=== PATIENT | female | born 1990 | race Caucasian/White ===

== ENCOUNTER → 2016-11-01 | Outpatient (CLI) | payer BC | END | disposition home or self-care (01) | LOC: C.PAPS 16:30 | PROVIDERS: ATTEND Obstetrics & Gynecology | DX: Z01.419 Encounter for gynecological examination (general) (routine) without abnormal findings (principal) ==

== ENCOUNTER → 2018-03-14 | Outpatient (CLI) | payer OTHER ==
--- NOTE | 2018-03-14 13:03 | DIAGNOSTIC IMAGING REPORT ---
PELVIC ULTRASOUND, TRANSABDOMINAL AND TRANSVAGINAL HISTORY: Pelvic pain. OVARIAN CYST COMPARISON: Pelvic MRI 10/20/2012. FINDINGS: Uterus: 8.4 x 4.4 x 3.3 cm. No uterine masses. Small complex nabothian cyst within the cervix, unchanged.. Endometrial stripe: 1 mm in thickness. There is an intrauterine device which is in good position. Right ovary: Normal in size and demonstrates normal color flow. There are few small follicles/cysts. Left ovary: Normal in size and demonstrates normal color flow. There are few small follicles/cysts. Miscellaneous:No pelvic free fluid. IMPRESSION: No significant abnormality identified within the pelvis. The intrauterine device is in good position. Electronically signed by: Gorge Watters M.D. 03/14/2018 1:02 PM Dictated Date/Time: 03/14/2018 12:58 PM
== END | disposition home or self-care (01) ==
LOC: C.ULTR 12:04
PROVIDERS: ATTEND Family Medicine
DX: N83.209 Unspecified ovarian cyst, unspecified side (principal); Z97.5 Presence of (intrauterine) contraceptive device

== ENCOUNTER 2020-05-18 21:33 | Inpatient (IN) ==
[2020-05-18] MEDS ORDERED: OXYTOCIN 30 UNITS/500 ML BAG IV PRN (22:52)
--- NOTE | 2020-05-18 22:59 | History & Physical Report ---
Date of Service May 18, 2020 Assessment & Plan (1) 38 weeks gestation of : (2) SROM (spontaneous rupture of membranes): admit iv labs. getting good labor pattern. expectant management. wants to consider epidural, ok to receive when desires. fhts categ 1. History of Present Illness Chief Complaint: srom clear fluid this pm Primary Care Provider: Wilfredo Brian 30yo at 38+wks ega presents to L&D with cc as noted. She called with leaking fluid about 9pm and was only having intermittent ctx. No vb. +FM. On arrival in L&D pt now noting more regular ctx increasing in pain. PNC c/b 1. known small vaginal septum, not thought to be issue for vaginal delivery 2. Panorama with low fraction, repeat panorama low risk, had mfm consult and they rec 28wks growth us, efw was 75% PNL rhpos, ri, gbs neg Allergies Allergy/AdvReac Type Severity Reaction Status Date / Time shellfish derived Allergy Mild Hives Verified 05/18/20 22:27 Sulfa (Sulfonamide Allergy Mild hives Verified 05/18/20 22:27 Antibiotics) soy AdvReac Unknown Gastrointestinal Verified 05/16/20 08:45 Upset Home Medications Home Medications Medication Instructions Recorded Confirmed Type prenat.vits,roseann,[id number] 1 tab PO DAILY 10/10/19 05/18/20 History fluoxetine 20 mg capsule 20 mg PO PM cap 12/31/19 05/16/20 History Patient History Medical History (Updated 05/18/20 @ 22:58 by Eloina Jaramillo MD, FACOG) Anxiety Encounter for anatomic survey Surgical History History of dental surgery tooth extracted > removed some infection in gum History of sinus surgery History of tooth extraction wisdom teeth Family History Father Allergic rhinitis Hearing loss Allergies Sinusitis Family/Other Breast cancer Mother Allergies Sinusitis Grandmother (Maternal) Asthma Heart disease Hypertension Grandfather (Maternal) Hypertension Stroke Cancer Kidney disease Grandmother (Paternal) Cancer Grandfather (Paternal) Diabetes Other No family history of adverse response to anesthesia No family history of bleeding disorder Social History Smoking Status: Never smoker Second Hand Exposure: No; Hx Alcohol Use: No Hx Substance Use: No Preferred Language: [place] Communication Ability: Effective Rn Labor And Delivery Required: No Beliefs That Will Affect Care: None marital status: marital status details: Isacc Middleton (33) [phone] Current Living Situation: Spouse Current Living Situation Comment: lives with spouse 2 dogs. 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 Other Information That Helps Us Care for You: No other: Doctorate Student Feels Safe at Home: Yes Safety Concerns: Feels Safe At This Time Childhood Exposure to Second-Hand Smoke: No Assistive Devices: Contacts and Glasses Review of Systems per hpi Physical Exam Constitutional: WD/WN, vitals as above Respiratory: normal respiratory effort, lungs clear to auscultation Cardiovascular: Rate/Rhythm: regular rate and regular rhythm Gastrointestinal (Abdomen): soft gravid nt Musculoskeletal: no edema nontender calves Neurologic: grossly normal Psychiatric: A+Ox3, euthymic affect Genitourinary: OB Exam Abdomen: + estimated weight (8#) Manual OB Exam: + cervical dilation 3 cm, + cervical effacement 100%, + station -1 and + amniotic fluid (gross srom) clear OB Exam Monitor Tracing: + external FHT monitor used (140 mod variability), + external uterine monitor used (q2), + category I and + normal FHT variability Results & Data ([place]) Vital Signs (Past 12 Hours) Vital Signs Temp Pulse Resp BP 05/18/20 22:38 99.0 F 18 05/18/20 21:53 18 05/18/20 21:51 85 143/65 H Coding Level of Care Code None Diagnoses 38 weeks gestation of Z3A.38 SROM (spontaneous rupture of membranes)
[2020-05-18] MEDS ORDERED: BUPIVACAINE 0.25% 30 ML VIAL ONE (23:12)
[2020-05-18] MEDS ORDERED: ePHEDrine sulfate 50 MG/ML AMP ONE (23:12)
[2020-05-18] MEDS ORDERED: fentaNYL citrate 100 MCG/2 ML VIAL ONE (23:12)
[2020-05-18] MEDS ORDERED: fentaNYL 2MCG/ML ROPIV 1.25MG/ML 100 ML BAG EPI ONE (23:13)
[2020-05-18] MEDS: LACTATED RINGER'S 1,000 ML IV PRN (23:16)
[2020-05-18 23:17] LABS: Hematocrit (blood only) 35.9 % (37-47); Mean Corpuscular Hemoglobin 28.3 pg (25-34); Mean Corpuscular Volume 84.7 fL (80-100); Mean Platelet Volume 9.8 fL (7.4-10.4); Platelet Count 283 K/uL (130-400); RDW Coefficient of Variation 14.5 % (11.5-14.5); RDW Standard Deviation 44.8 fL (36.4-46.3); Red Blood Count 4.24 M/uL (4.2-5.4); White Blood Count 15.82 K/uL (4.8-10.8)
[2020-05-18 23:23] LABS: Mean Corpuscular Hgb Conc 33.4 g/dL (32-36)
[2020-05-18 23:33] LABS: Albumin Level 2.5 gm/dl (3.4-5.0); BUN Creatinine Ratio 12.2 (10-20); Calcium 9.3 mg/dl (8.5-10.1); Est GFR (African American) 103.6; Est GFR (Non-African American) 89.4; Potassium 3.2 mmol/L (3.5-5.1)
[2020-05-18 23:36] LABS: Albumin Globulin Ratio 0.6 (0.9-2); Bilirubin,Total 0.4 mg/dl (0.2-1); Globulin 3.9 gm/dl (2.5-4.0); Total Protein 6.4 gm/dl (6.4-8.2)
--- NOTE | 2020-05-18 23:49 | Anesthesiology Consultation ---
Date of Service May 18, 2020 Assessment & Plan Chart Review Chart Review: Acceptable Risk for Labor Epidural Consults Requested none Proposed Anesthesia Risk / Benefits Reviewed With: PT / POA / Parent / Guardian, Accepts Plan and Informed Consent Obtained History Height/Weight Height: 5 ft 7 in Weight: 99.79 kg Allergies Allergy/AdvReac Type Severity Reaction Status Date / Time shellfish derived Allergy Mild Hives Verified 05/18/20 22:27 Sulfa (Sulfonamide Allergy Mild hives Verified 05/18/20 22:27 Antibiotics) soy AdvReac Unknown Gastrointestinal Verified 05/16/20 08:45 Upset Medications Home Medications Medication Instructions Recorded Confirmed Last Taken prenat.vits,roseann,uof-tdpu-zzatu 1 tab PO DAILY 10/10/19 05/18/20 05/18/20 09:00 fluoxetine 20 mg capsule 20 mg PO PM cap 12/31/19 05/16/20 05/17/20 21:00 Active Medications Generic Name Dose Route Start Last Admin Trade Name Freq PRN Reason Stop Dose Admin Lactated Ringer's 1,000 mls @ 125 mls/hr 05/18/20 22:52 05/18/20 23:16 Lr IV 05/20/20 22:51 125 mls/hr .Q8H PRN Administration L&D Protocol Protocol Past Medical History Medical History Anxiety Encounter for anatomic survey Past Family History Family History Father Allergic rhinitis Hearing loss Allergies Sinusitis Family/Other Breast cancer Mother Allergies Sinusitis Grandmother (Maternal) Asthma Heart disease Hypertension Grandfather (Maternal) Hypertension Stroke Cancer Kidney disease Grandmother (Paternal) Cancer Grandfather (Paternal) Diabetes Other No family history of adverse response to anesthesia No family history of bleeding disorder Past Surgical History Surgical History History of dental surgery tooth extracted > removed some infection in gum History of sinus surgery History of tooth extraction wisdom teeth Social History Smoking Status: Never smoker Hx Alcohol Use: No Alcohol type: beer and wine alcohol intake frequency: a few times a week Hx Substance Use: No substance use type: does not use Physical Exam Vital Signs Last Vital Signs Temp 37.2 C 05/18/20 22:38 Pulse 82 05/18/20 23:45 Resp 18 05/18/20 22:38 BP 133/64 05/18/20 23:45 Pulse Ox 95 05/18/20 23:45 Testing Laboratory Results 05/18/20 23:02 05/18/20 23:02
[2020-05-18] MEDS ORDERED: fentaNYL 2MCG/ML ROPIV 1.25MG/ML 100 ML BAG EPI PRN (23:51)
[2020-05-18] MEDS ORDERED: NALOXONE HCL 0.4 MG/1 ML VIAL/CARP IV PRN (23:51)
[2020-05-18] MEDS ORDERED: ONDANSETRON INJ 2 MG/ML 2 ML VIAL IV PRN (23:51)
[2020-05-18] MEDS ORDERED: ePHEDrine sulfate 50 MG/ML AMP IV PRN (23:51)
[2020-05-18] MEDS ORDERED: NALOXONE HCL 1 MG in SODIUM CHLORIDE 0.9% 1000ML 1,000 ML IV PRN (23:51)
[2020-05-18] MEDS ORDERED: DiphenhydrAMINE HCL 50 MG/ML VIAL IV PRN (23:51)
[2020-05-19] MEDS: LACTATED RINGER'S 1,000 ML IV PRN ×2 (02:20→07:17)
--- NOTE | 2020-05-19 07:16 | Labor Progress Brief Note ---
Date of Service May 19, 2020 Subjective Reason For Note: Routine Evaluation some urge to push Assessment & Plan (1) Longitudinal vaginal septum: (2) 38 weeks gestation of : (3) SROM (spontaneous rupture of membranes): ready for 2nd stage. feeling on and off urge to push. i did push with pt x 1 and septum can move toward pt left but unclear if would be best to transect. will wait to d/w oncoming md coldfusion. fhts categ 1. Admission and Anticipated Discharge Date Admission Date: May 18, 2020 Physical Exam Genitourinary: Manual OB Exam: + cervical dilation 10 cm, + cervical effacement 100% and + station + 2 OB Exam Monitor Tracing: + external FHT monitor used (150 mod variability), + external uterine monitor used (q2-4), + normal FHT variability and + variable decelerations Results & Data ([facility]) Vital Signs (Past 12 Hours) Vital Signs Temp Pulse Resp BP Pulse Ox 05/19/20 07:10 100 H 93 05/19/20 07:09 94 H 93 05/19/20 07:07 95 H 128/58 L 05/19/20 07:05 97 H 77 L 05/19/20 07:00 97 H 91 05/19/20 06:57 101 H 92 05/19/20 06:55 100 H 94 05/19/20 06:54 120 H 175/62 H 05/19/20 06:51 91 H 93 05/19/20 06:50 95 H 94 05/19/20 06:45 98 H 95 05/19/20 06:40 95 H 95 05/19/20 06:38 95 H 141/63 H 05/19/20 06:35 95 H 95 05/19/20 06:30 93 H 95 05/19/20 06:25 95 H 94 05/19/20 06:23 96 H 138/63 05/19/20 06:21 97 H 137/65 05/19/20 06:20 98 H 95 05/19/20 06:15 100 H 96 05/19/20 06:10 92 H 96 05/19/20 06:07 95 H 137/60 05/19/20 06:05 92 H 96 05/19/20 06:00 95 H 96 05/19/20 05:55 92 H 96 05/19/20 05:52 93 H 130/59 L 05/19/20 05:50 91 H 96 05/19/20 05:45 99.1 F 95 H 96 05/19/20 05:40 90 96 05/19/20 05:36 103 H 131/61 05/19/20 05:35 96 H 95 05/19/20 05:30 97 H 96 05/19/20 05:25 89 94 05/19/20 05:21 87 138/58 L 05/19/20 05:20 90 94 05/19/20 05:15 93 H 95 05/19/20 05:10 91 H 96 05/19/20 05:07 93 H 133/64 05/19/20 05:05 90 94 05/19/20 05:02 85 93 05/19/20 05:00 88 94 05/19/20 04:55 92 H 95 05/19/20 04:53 93 H 133/64 05/19/20 04:50 88 94 05/19/20 04:48 88 93 05/19/20 04:45 90 97 05/19/20 04:40 88 95 05/19/20 04:38 96 H 133/62 05/19/20 04:35 89 97 05/19/20 04:30 100 H 96 05/19/20 04:25 97 H 98 05/19/20 04:23 95 H 127/65 05/19/20 04:20 99 H 97 05/19/20 04:15 94 H 97 05/19/20 04:10 97 H 97 05/19/20 04:08 96 H 131/58 L 05/19/20 04:05 91 H 97 05/19/20 04:00 99.0 F 100 H 16 96 05/19/20 03:55 95 H 96 05/19/20 03:53 93 H 137/63 05/19/20 03:50 94 H 96 05/19/20 03:45 91 H 94 05/19/20 03:40 93 H 96 05/19/20 03:38 92 H 134/60 05/19/20 03:35 91 H 95 05/19/20 03:30 96 H 97 05/19/20 03:25 95 H 97 05/19/20 03:22 87 134/62 05/19/20 03:20 99 H 95 05/19/20 03:15 95 H 96 05/19/20 03:10 97 H 95 05/19/20 03:07 90 127/61 05/19/20 03:05 95 H 96 05/19/20 03:00 93 H 96 05/19/20 02:55 92 H 96 05/19/20 02:53 93 H 143/65 H 05/19/20 02:50 99 H 97 05/19/20 02:45 92 H 97 05/19/20 02:40 90 97 05/19/20 02:36 89 137/61 05/19/20 02:35 87 98 05/19/20 02:30 82 96 05/19/20 02:25 87 96 05/19/20 02:22 81 129/58 L 05/19/20 02:20 87 96 05/19/20 02:15 91 H 97 05/19/20 02:10 86 97 05/19/20 02:06 81 133/59 L 05/19/20 02:05 79 94 05/19/20 02:00 98.2 F 83 18 95 05/19/20 01:55 82 95 05/19/20 01:53 83 121/58 L 05/19/20 01:50 83 95 05/19/20 01:45 80 95 05/19/20 01:40 83 95 05/19/20 01:38 86 119/58 L 05/19/20 01:35 78 95 05/19/20 01:34 74 93 05/19/20 01:30 75 94 05/19/20 01:25 81 95 05/19/20 01:23 74 122/59 L 05/19/20 01:20 73 94 05/19/20 01:15 77 94 05/19/20 01:10 81 94 05/19/20 01:06 77 120/58 L 05/19/20 01:05 81 94 05/19/20 01:00 66 89 L 05/19/20 00:55 68 89 L 05/19/20 00:52 68 127/59 L 05/19/20 00:50 70 89 L 05/19/20 00:45 71 89 L 05/19/20 00:40 74 92 05/19/20 00:38 68 122/56 L 05/19/20 00:35 72 89 L 05/19/20 00:30 69 88 L 05/19/20 00:25 69 89 L 05/19/20 00:23 67 126/59 L 05/19/20 00:20 76 91 05/19/20 00:15 69 89 L 05/19/20 00:10 68 90 05/19/20 00:08 68 124/58 L 05/19/20 00:05 69 90 05/19/20 00:00 99.0 F 71 92 05/18/20 23:55 79 92 05/18/20 23:54 80 93 05/18/20 23:51 76 122/67 05/18/20 23:50 82 94 05/18/20 23:48 85 129/55 L 94 05/18/20 23:45 82 133/64 95 05/18/20 23:42 79 140/65 05/18/20 23:40 78 97 05/18/20 23:39 71 150/72 H 05/18/20 23:36 77 145/67 H 05/18/20 23:35 83 99 05/18/20 23:34 77 142/65 H 05/18/20 23:30 81 156/72 H 05/18/20 23:29 79 100 05/18/20 23:28 81 149/71 H 05/18/20 23:24 81 100 05/18/20 22:38 99.0 F 18 05/18/20 21:53 18 05/18/20 21:51 85 143/65 H Coding Level of Care Code None Diagnoses Longitudinal vaginal septum Q52.129 38 weeks gestation of Z3A.38 SROM (spontaneous rupture of membranes)
[2020-05-19] MEDS ORDERED: OXYTOCIN 30 UNITS/500 ML BAG IV PRN (07:51)
--- NOTE | 2020-05-19 07:56 | Labor Progress Brief Note ---
Date of Service May 19, 2020 Subjective Transitioned to taking over care this AM. Pt occasionally feeling urge to push, moreso when sitting up. Assessment & Plan (1) Longitudinal vaginal septum: (2) 38 weeks gestation of : (3) SROM (spontaneous rupture of membranes): Discussed that with palpation of septum and mobility, would wait and see if head helps to push septum to side as head comes down but will continue to monitor. Will start pit as ctx are more irregular to help before pushing Admission and Anticipated Discharge Date Admission Date: May 18, 2020 Physical Exam Genitourinary: OB Exam Monitor Tracing: + external FHT monitor used, + external uterine monitor used (q4-6 min, slightly irreg) and + category I (150/mod/+accel/-decel) 10/100/+2, vaginal septum palpated to left of midline. Septum slightly edematous but mobile Results & Data ([facility]) Vital Signs (Past 12 Hours) Vital Signs Temp Pulse Resp BP Pulse Ox 05/19/20 07:50 93 H 95 05/19/20 07:45 98 H 94 05/19/20 07:40 91 H 94 05/19/20 07:37 90 127/59 L 05/19/20 07:35 93 H 94 05/19/20 07:34 93 H 93 05/19/20 07:30 101 H 96 05/19/20 07:28 91 H 93 05/19/20 07:25 93 H 95 05/19/20 07:22 89 134/63 05/19/20 07:20 91 H 95 05/19/20 07:15 93 H 94 05/19/20 07:12 99 F 94 05/19/20 07:10 100 H 93 05/19/20 07:09 94 H 93 05/19/20 07:07 95 H 128/58 L 05/19/20 07:05 97 H 77 L 05/19/20 07:01 18 05/19/20 07:00 97 H 91 05/19/20 06:57 101 H 92 05/19/20 06:55 100 H 94 05/19/20 06:54 120 H 175/62 H 05/19/20 06:51 91 H 93 05/19/20 06:50 95 H 94 05/19/20 06:45 98 H 95 05/19/20 06:40 95 H 95 05/19/20 06:38 95 H 141/63 H 05/19/20 06:35 95 H 95 05/19/20 06:30 93 H 95 05/19/20 06:25 95 H 94 05/19/20 06:23 96 H 138/63 05/19/20 06:21 97 H 137/65 05/19/20 06:20 98 H 95 05/19/20 06:15 100 H 96 05/19/20 06:10 92 H 96 05/19/20 06:07 95 H 137/60 05/19/20 06:05 92 H 96 05/19/20 06:00 95 H 96 05/19/20 05:55 92 H 96 05/19/20 05:52 93 H 130/59 L 05/19/20 05:50 91 H 96 05/19/20 05:45 99.1 F 95 H 96 05/19/20 05:40 90 96 05/19/20 05:36 103 H 131/61 05/19/20 05:35 96 H 95 05/19/20 05:30 97 H 96 05/19/20 05:25 89 94 05/19/20 05:21 87 138/58 L 05/19/20 05:20 90 94 05/19/20 05:15 93 H 95 05/19/20 05:10 91 H 96 05/19/20 05:07 93 H 133/64 05/19/20 05:05 90 94 05/19/20 05:02 85 93 05/19/20 05:00 88 94 05/19/20 04:55 92 H 95 05/19/20 04:53 93 H 133/64 05/19/20 04:50 88 94 05/19/20 04:48 88 93 05/19/20 04:45 90 97 05/19/20 04:40 88 95 05/19/20 04:38 96 H 133/62 05/19/20 04:35 89 97 05/19/20 04:30 100 H 96 05/19/20 04:25 97 H 98 05/19/20 04:23 95 H 127/65 05/19/20 04:20 99 H 97 05/19/20 04:15 94 H 97 05/19/20 04:10 97 H 97 05/19/20 04:08 96 H 131/58 L 05/19/20 04:05 91 H 97 05/19/20 04:00 99.0 F 100 H 16 96 05/19/20 03:55 95 H 96 05/19/20 03:53 93 H 137/63 05/19/20 03:50 94 H 96 05/19/20 03:45 91 H 94 05/19/20 03:40 93 H 96 05/19/20 03:38 92 H 134/60 05/19/20 03:35 91 H 95 05/19/20 03:30 96 H 97 05/19/20 03:25 95 H 97 05/19/20 03:22 87 134/62 05/19/20 03:20 99 H 95 05/19/20 03:15 95 H 96 05/19/20 03:10 97 H 95 05/19/20 03:07 90 127/61 05/19/20 03:05 95 H 96 05/19/20 03:00 93 H 96 05/19/20 02:55 92 H 96 05/19/20 02:53 93 H 143/65 H 05/19/20 02:50 99 H 97 05/19/20 02:45 92 H 97 05/19/20 02:40 90 97 05/19/20 02:36 89 137/61 05/19/20 02:35 87 98 05/19/20 02:30 82 96 05/19/20 02:25 87 96 05/19/20 02:22 81 129/58 L 05/19/20 02:20 87 96 05/19/20 02:15 91 H 97 05/19/20 02:10 86 97 05/19/20 02:06 81 133/59 L 05/19/20 02:05 79 94 05/19/20 02:00 98.2 F 83 18 95 05/19/20 01:55 82 95 05/19/20 01:53 83 121/58 L 05/19/20 01:50 83 95 05/19/20 01:45 80 95 05/19/20 01:40 83 95 05/19/20 01:38 86 119/58 L 05/19/20 01:35 78 95 05/19/20 01:34 74 93 05/19/20 01:30 75 94 05/19/20 01:25 81 95 09/28/20 01:23 74 122/59 L 05/19/20 01:20 73 94 05/19/20 01:15 77 94 05/19/20 01:10 81 94 05/19/20 01:06 77 120/58 L 05/19/20 01:05 81 94 05/19/20 01:00 66 89 L 05/19/20 00:55 68 89 L 05/19/20 00:52 68 127/59 L 05/19/20 00:50 70 89 L 05/19/20 00:45 71 89 L 05/19/20 00:40 74 92 05/19/20 00:38 68 122/56 L 05/19/20 00:35 72 89 L 05/19/20 00:30 69 88 L 05/19/20 00:25 69 89 L 05/19/20 00:23 67 126/59 L 05/19/20 00:20 76 91 05/19/20 00:15 69 89 L 05/19/20 00:10 68 90 05/19/20 00:08 68 124/58 L 05/19/20 00:05 69 90 05/19/20 00:00 99.0 F 71 92 05/18/20 23:55 79 92 05/18/20 23:54 80 93 05/18/20 23:51 76 122/67 05/18/20 23:50 82 94 05/18/20 23:48 85 129/55 L 94 05/18/20 23:45 82 133/64 95 05/18/20 23:42 79 140/65 05/18/20 23:40 78 97 05/18/20 23:39 71 150/72 H 05/18/20 23:36 77 145/67 H 05/18/20 23:35 83 99 05/18/20 23:34 77 142/65 H 05/18/20 23:30 81 156/72 H 05/18/20 23:29 79 100 05/18/20 23:28 81 149/71 H 05/18/20 23:24 81 100 05/18/20 22:38 99.0 F 18 05/18/20 21:53 18 05/18/20 21:51 85 143/65 H Coding Level of Care Code None Diagnoses Longitudinal vaginal septum Q52.129 38 weeks gestation of Z3A.38 SROM (spontaneous rupture of membranes)
--- NOTE | 2020-05-19 12:36 | Delivery Summary ---
Vaginal Delivery Summary Date of Service May 19, 2020 Vaginal Delivery Summary PREOPERATIVE DIAGNOSIS: 1. Single intrauterine at 38w3d 2. Longitudinal vaginal septum 3. Labor 4. Spontaneous rupture of membranes POSTOPERATIVE DIAGNOSIS: 1. Single intrauterine at 38w3d 2. Longitudinal vaginal septum 3. Labor 4. Spontaneous rupture of membranes 5. Delivered PROCEDURE: 1. Normal spontaneous vaginal delivery. 2. Mediolateral episiotomy SURGEON: Juli Whitman MD ANESTHESIA: Epidural. ESTIMATED BLOOD LOSS: 300 mL FLUIDS: Continuous LR. URINE OUTPUT: None. COMPLICATIONS: None. CONDITION: Stable. INDICATIONS: 30 y/o G1 at 38w3d presented last evening w/ c/o LOF and intermittent ctx. She was found to be grossly ruptured and ctx continued to worsen. She then progressed to complete, complete +2 spontaneously and desired to push. While pushing, ctx were noted to space out and pitocin was given to regulate contractions. FINDINGS: A viable male infant weighing 8lb 12oz with Apgars of 8 and 9 at 1 and 5 minutes respectively. SPECIMEN: None. OPERATIVE REPORT: The patient progressed to 10 cm, 100% effaced and +2 station and desired to push. As she pushed over intact perineum with anesthesia, decel was noted. Strong maternal effort was noted to push however there was tight maternal tissue that was impeding delivery. A right mediolateral episiotomy was then performed to alleviate the tissue band to effect delivery. Over the next push she delivered a viable male infant, weight and Apgars as above. Head of delivered in GIOVANNI position. No nuchal cord was present. Body and shoulders were delivered without difficulty. was delivered to maternal abdomen and nursing staff. Delayed cord clamping was performed x 60sec. Cord was clamped and cut. Cord blood was obtained. Placenta delivered spontaneously intact with 3-vessel cord. IV oxytocin and fundal massage were given for excellent hemostasis. Vagina, cervix, placenta and perineum were inspected. No additional lacerations were noted. Episiotomy was repaired in the usual fashion with 3-0 vicryl. Vaginal septum was identified to have torn in the middle but was hemostatic at the superior and inferior aspects so did not indicate further repair. Sponge and needle counts correct x2. No sponges were left behind. Mother and stable in immediate period. [facility] [place] Vaginal Delivery Charge Vaginal Delivery Codes: 82107 global code for the antepartum, delivery, and post-
[2020-05-19] MEDS ORDERED: HYDROCORTISONE ACETATE 25 MG SUPP PR PRN (12:53)
[2020-05-19] MEDS ORDERED: DIPHTHERIA/TETANUS/PERTUSSIS 0.5 ML SYR/VIAL IM ONE (12:53)
[2020-05-19] MEDS ORDERED: OXYCODONE/ACETAMINOPHEN 5mg/325mg TAB PO PRN (12:53)
[2020-05-19] MEDS ORDERED: BENZOCAINE 20% AER SPR 82.5 GM CAN EXT PRN (12:53)
[2020-05-19] MEDS ORDERED: ACETAMINOPHEN 325 MG TAB PO PRN (12:53)
[2020-05-19] MEDS ORDERED: SUPERCREAM 0.870% 15 GM JAR EXT PRN (12:53)
--- NOTE | 2020-05-19 13:32 | Anesthesia Procedure Note ---
Date of Service May 19, 2020 Anesthesia Post Epidural Note Vital Signs Vital Signs: Temp Pulse Resp BP Pulse Ox 37.1 C 72 18 126/60 93 05/19/20 10:50 05/19/20 13:21 05/19/20 11:00 05/19/20 13:21 05/19/20 12:15 Pain Intensity Abdomen: Pain Intensity: 4 Notes Mental Status: alert / awake / arousable and participated in evaluation Nausea / Vomiting: adequately controlled Pain: adequately controlled Airway Patency, RR, SpO2: stable & adequate BP & HR: stable & adequate Hydration State: stable & adequate Neuraxial Anesthesia: was administered and sensory block is resolving Anesthetic Complications: no major complications apparent and Pt Satisfied with anesthetic care Epidural: Removed without complications and With tip intact
[2020-05-19] MEDS: IBUPROFEN 600 MG TAB PO PRN ×2 (16:19→21:25)
[2020-05-19] MEDS: FLUOXETINE HCL 20 MG CAP PO SCH (19:41)
[2020-05-19] MEDS: DOCUSATE SODIUM 100 MG CAP PO SCH (21:22)
--- NOTE | 2020-05-20 04:33 | Obstetrical Progress Note ---
Date of Service May 20, 2020 Assessment & Plan (1) Supervision of normal first : S/p Day 1 - Feels well today. Eating well, voiding well, ambulating well. - Pain well-controlled with ibuprofen 600mg Q4H PRN. - Vital signs reviewed and WNL. - Hemoglobin reviewed. 12.0 (pre-) - Blood Type: A+, antibody negative, GBS negative, Rubella Immune, COVID-19 negative - Continue routine post- care: encourage ambulation, monitor and control pain with Motrin PRN, continue regular OB diet, monitor lochia - Encourage breast feeding. - After discharge, will have 6-wk follow-up with Dr. Whitman Admission and Anticipated Discharge Date Admission Date: May 18, 2020 Supervising Physician Co-Signing Physician Notes Resident Physician Supervision Note: I interviewed and examined the patient. Discussed with Dr. Bo and agree with findings and plan as documented in the note. Any exceptions or clarifications are listed here: None Documented By: Juli Whitman MD Subjective HPI Jo Hummel is a 30 y/o female who is PPD 1 spontaneous vaginal delivery at 38 3/7 weeks. She reports feeling well overall this morning. No abdominal cramping and 2-5/10 pain well managed on analgesics. Voiding well. Tolerating meals overnight without difficulty. Patient has been able to ambulate some. passing gas and no bowel movement. Has persistent lochia with some improvement this morning. Currently bottle feeding with formula. Review of Systems Review of Systems: ROS Denies fever or chills. Denies shortness of breath or cough. Denies chest pain. Denies breast pain. Denies dysuria. Denies leg pain or leg swelling. Physical Exam Physical Exam: PE General: Alert, oriented. No acute distress. Cardiac: Regular rate and rhythm. No murmurs. Respiratory: Clear to auscultation bilaterally a/p, no wheezes/rales/rhonchi. No increased work of breathing. Symmetrical chest rise. No respiratory distress. Abdomen: Soft, nontender, nondistended. Bowel sounds present. Uterus: Uterine fundus firm, palpable at umbilicus. Lower Extremities: No lower extremity edema or swelling. No deep calf pain. Nithya's negative bilaterally. Results & Data ([facility]) Vital Signs (Past 12 Hours) Vital Signs Temp Pulse Resp BP Pulse Ox 05/20/20 00:10 36.7 C 80 18 127/78 05/19/20 19:25 37.0 C 78 18 131/75 05/19/20 16:45 36.7 C 77 16 142/72 H 97 Resident Activity Tracking Resident Involvement: Resident Care Provided Care Provided: OB Delivery
[2020-05-20] MEDS: DOCUSATE SODIUM 100 MG CAP PO SCH ×2 (09:07→19:52)
[2020-05-20] MEDS: IBUPROFEN 600 MG TAB PO PRN ×3 (09:07→23:38)
[2020-05-20] MEDS: PRENATAL VITAMIN 1 TAB PO SCH (09:07)
[2020-05-20] MEDS: FLUOXETINE HCL 20 MG CAP PO SCH (10:53)
--- NOTE | 2020-05-20 15:32 | Obstetrical Progress Note ---
Date of Service May 21, 2020 Assessment & Plan (1) Supervision of normal first : S/p Day 2 - Feels well today. Eating well, voiding well, ambulating well. - Pain well-controlled with ibuprofen 600mg Q4H PRN. - Vital signs reviewed and stable/WNL. - Hemoglobin reviewed. 12.0 (pre-) - Blood Type: A+, antibody negative, GBS negative, Rubella Immune, COVID-19 negative - Continue routine post- care: encourage ambulation, monitor and control pain with Motrin PRN, continue regular OB diet, monitor lochia - Pt has elected to continue bottle feeding with formula - Pt counseled on discharge instructions today - After discharge, will have 6-wk follow-up with Dr. Whitman Admission and Anticipated Discharge Date Admission Date: May 18, 2020 Supervising Physician Co-Signing Physician Notes Resident Physician Supervision Note: I was present with during the history and exam. I discussed the case with the resident and agree with the findings and plan as documented in the note. Any exceptions or clarifications are listed here: [None] Documented By: Brain Berrios MD, FACOG Subjective HPI Jo Hummel is a 30 y/o female who is PPD 2 spontaneous vaginal delivery at 38 3/7 weeks. She reports feeling well overall this morning. No abdominal cramping and 2-5/10 pain well managed on analgesics. Voiding well. Tolerating meals overnight without difficulty. Patient has been able to ambulate some. passing gas and no bowel movement. Has persistent lochia with some improvement this morning. Currently bottle feeding with formula. Review of Systems Review of Systems: ROS Denies fever or chills. Denies shortness of breath or cough. Denies chest pain. Denies breast pain. Denies dysuria. Denies leg pain or leg swelling. Physical Exam Physical Exam: PE General: Alert, oriented. No acute distress. Cardiac: Regular rate and rhythm. No murmurs. Respiratory: Clear to auscultation bilaterally a/p, no wheezes/rales/rhonchi. No increased work of breathing. Symmetrical chest rise. No respiratory distress. Abdomen: Soft, nontender, nondistended. Bowel sounds present. Uterus: Uterine fundus firm, palpable at umbilicus. Lower Extremities: No lower extremity edema or swelling. No deep calf pain. Nithya's negative bilaterally. Results & Data ([facility]) Vital Signs (Past 12 Hours) Vital Signs Temp Pulse Resp BP Pulse Ox 05/20/20 13:00 36.9 C 75 16 117/66 97 05/20/20 07:20 36.7 C 77 16 117/66 97 Resident Activity Tracking Resident Involvement: Resident Care Provided Care Provided: OB Delivery
[2020-05-21] MEDS: DOCUSATE SODIUM 100 MG CAP PO SCH ×2 (08:45→21:09)
[2020-05-21] MEDS: IBUPROFEN 600 MG TAB PO PRN ×3 (08:45→22:45)
[2020-05-21] MEDS: PRENATAL VITAMIN 1 TAB PO SCH (08:45)
[2020-05-21 09:54] LABS: Hematocrit (blood only) 33.9 % (37-47); Hemoglobin 10.8 g/dL (12.0-16.0); Mean Corpuscular Volume 87.8 fL (80-100); Platelet Count 246 K/uL (130-400); RDW Coefficient of Variation 15.1 % (11.5-14.5); RDW Standard Deviation 48.2 fL (36.4-46.3); Red Blood Count 3.86 M/uL (4.2-5.4); White Blood Count 14.93 K/uL (4.8-10.8)
[2020-05-21 10:12] LABS: Albumin Level 2.2 gm/dl (3.4-5.0); BUN Creatinine Ratio 15.1 (10-20); Calcium 8.4 mg/dl (8.5-10.1); Creatinine Clr Calc Pharmacy 132.5 ml/min; Est GFR (African American) 124.2; Est GFR (Non-African American) 107.2; Potassium 3.3 mmol/L (3.5-5.1)
[2020-05-21 10:15] LABS: Albumin Globulin Ratio 0.6 (0.9-2); Bilirubin,Total 0.4 mg/dl (0.2-1); Globulin 3.6 gm/dl (2.5-4.0); Total Protein 5.8 gm/dl (6.4-8.2); Uric Acid 5.8 mg/dl (2.6-7.2)
[2020-05-21 10:21] LABS: Mean Corpuscular Hgb Conc 31.9 g/dL (32-36)
[2020-05-21] MEDS: FLUOXETINE HCL 20 MG CAP PO SCH (12:14)
[2020-05-21] MEDS: LABETALOL HCL 200 MG TAB PO SCH (12:28)
--- NOTE | 2020-05-21 12:34 | Obstetrical Progress Note ---
Date of Service May 21, 2020 Assessment & Plan (1) Hypertension: Labetalol PO ordered for BP elevation. Labs also show mild LFT abnormality but no other changes suspicious for preeclampsia and no concerning symptoms or signs on exam. Unclear if LFT changes are a red brown or if this will develop into preeclampsia. Will start by just managing BP and repeating labs this evening. Further decision at that time for DC, observation, or possibly Mag therapy. Pt and FOB awaare. Admission and Anticipated Discharge Date Admission Date: May 18, 2020 Subjective Delayed entry due to patient care. This patient is being re-evaluated due to increased BP noted this morning despite the patient being planned for D/C home today. Labs sent late morning showed normal platelets and renal function but newly elevated LFTs. Comfortable, denies LOZANO, RUQ pain, vis change, SOB. Mild pedal edema. Physical Exam Constitutional: WD/WN, vitals as above Eyes: PERRL, conjunctivae normal, anicteric sclerae ENMT: external ear and nose normal, oropharynx normal Neck: supple Respiratory: normal respiratory effort and able to speak in complete sentences; no respiratory distress Cardiovascular: Rate/Rhythm: regular rate and regular rhythm Extremities: + pedal edema Gastrointestinal (Abdomen): Gravid / AGA, nontender Musculoskeletal: no cyanosis or clubbing, extremities motor strength 5/5 Skin: no rashes, warm and dry Neurologic: patellar DTR's 2+ bilat, sensation intact Psychiatric: A+Ox3, euthymic affect Results & Data ([facility]) Vital Signs (Past 12 Hours) Vital Signs Temp Pulse Resp BP BP Pulse Ox 05/21/20 12:15 73 149/87 H 97 05/21/20 11:05 98.2 F 66 18 135/77 98 05/21/20 08:45 149/90 H 05/21/20 07:45 98.1 F 71 18 132/79 142/88 H 99 Laboratory Results Laboratory Results - last 24 hr 05/21/20 05/21/20 09:41 09:41 WBC 14.93 H RBC 3.86 L Hgb 10.8 L Hct 33.9 L MCV 87.8 MCH 28.0 MCHC 31.9 L RDW Std Deviation 48.2 H RDW Coeff of Ronald 15.1 H Plt Count 246 MPV 10.0 Sodium 142 Potassium 3.3 L Chloride 110 H Carbon Dioxide 27 Anion Gap 5.0 BUN 11 Creatinine 0.74 Est Cr Clr Drug Dosing 132.5 Est GFR ( Amer) 124.2 Est GFR (Non-Af Amer) 107.2 BUN/Creatinine Ratio 15.1 Glucose 79 Uric Acid 5.8 Calcium 8.4 L Total Bilirubin 0.4 AST 88 H ALT 116 H Alkaline Phosphatase 127 H Total Protein 5.8 L Albumin 2.2 L Globulin 3.6 Albumin/Globulin Ratio 0.6 L PG Care Time/CCT Total # of Minutes Spent Total Time Spent with Patient: Total time spent is greater than 50% in coordination of care (as documented) at patient's floor/unit and/or counseling patient: Coding Level of Care Code None Diagnoses Hypertension I10
[2020-05-21 16:55] LABS: Hematocrit (blood only) 32.5 % (37-47); Hemoglobin 10.3 g/dL (12.0-16.0); Mean Corpuscular Hemoglobin 27.5 pg (25-34); Mean Corpuscular Hgb Conc 31.7 g/dL (32-36); Mean Corpuscular Volume 86.9 fL (80-100); Mean Platelet Volume 9.7 fL (7.4-10.4); Platelet Count 254 K/uL (130-400); RDW Coefficient of Variation 15.1 % (11.5-14.5); RDW Standard Deviation 48.3 fL (36.4-46.3); Red Blood Count 3.74 M/uL (4.2-5.4); White Blood Count 13.94 K/uL (4.8-10.8)
[2020-05-21 17:13] LABS: Albumin Level 2.1 gm/dl (3.4-5.0); BUN Creatinine Ratio 15.5 (10-20); Calcium 8.4 mg/dl (8.5-10.1); Creatinine Clr Calc Pharmacy 138.1 ml/min; Est GFR (African American) 130.6; Est GFR (Non-African American) 112.7; Potassium 3.4 mmol/L (3.5-5.1)
[2020-05-21 17:16] LABS: Albumin Globulin Ratio 0.6 (0.9-2); Bilirubin,Total 0.3 mg/dl (0.2-1); Globulin 3.6 gm/dl (2.5-4.0); Total Protein 5.7 gm/dl (6.4-8.2)
--- NOTE | 2020-05-21 17:41 | Obstetrical Progress Note ---
Date of Service May 21, 2020 Assessment & Plan (1) Hypertension: Discussed findings with patient - labs show stable mild LFT elevations, continued normal renal fxn and plts. BP never in severe range. Discussed options: Could diagnose atypical preeclampsia based on mild HTN and AST that did reach 2x/nl, but that it's a soft call as there aren't any other clinical or lab findings to support the diagnosis. Discussed can transfer to L&D for magnesium (more conservative) or maintain hourly BP checks, Q6hr labs, and observe closely overnight. She is aware that if BP worsens, labs worsen, or she has any clinical symptoms or signs of preeclampsia, we will recommend Mag. She is hoping to avoid the mag and prefers less conservative watchful waiting overnight. Admission and Anticipated Discharge Date Admission Date: May 18, 2020 Subjective Continues to feel well, denies LOZANO, RUQ, vis chg, edema other than feet. Physical Exam Physical Exam: BP noted. Some improved BP values after labetalol first dose. DTR still normal, 2+ bilat patellae. No increased edema. Results & Data ([facility]) Vital Signs (Past 12 Hours) Vital Signs Temp Pulse Resp BP BP Pulse Ox 05/21/20 16:20 140/75 05/21/20 15:20 98.1 F 72 18 134/74 95 05/21/20 14:15 73 136/75 98 05/21/20 13:15 98.2 F 71 18 145/79 H 99 05/21/20 12:15 73 149/87 H 97 05/21/20 11:05 98.2 F 66 18 135/77 98 05/21/20 08:45 149/90 H 05/21/20 07:45 98.1 F 71 18 132/79 142/88 H 99 Laboratory Results Laboratory Results - last 24 hr 05/21/20 05/21/20 05/21/20 09:41 09:41 16:45 WBC 14.93 H RBC 3.86 L Hgb 10.8 L Hct 33.9 L MCV 87.8 MCH 28.0 MCHC 31.9 L RDW Std Deviation 48.2 H RDW Coeff of Ronald 15.1 H Plt Count 246 MPV 10.0 Sodium 142 143 Potassium 3.3 L 3.4 L Chloride 110 H 112 H Carbon Dioxide 27 24 Anion Gap 5.0 7.0 BUN 11 11 Creatinine 0.74 0.71 Est Cr Clr Drug Dosing 132.5 138.1 Est GFR ( Amer) 124.2 130.6 Est GFR (Non-Af Amer) 107.2 112.7 BUN/Creatinine Ratio 15.1 15.5 Glucose 79 87 Uric Acid 5.8 Calcium 8.4 L 8.4 L Total Bilirubin 0.4 0.3 AST 88 H 84 H ALT 116 H 119 H Alkaline Phosphatase 127 H 121 H Total Protein 5.8 L 5.7 L Albumin 2.2 L 2.1 L Globulin 3.6 3.6 Albumin/Globulin Ratio 0.6 L 0.6 L 05/21/20 16:45 WBC 13.94 H RBC 3.74 L Hgb 10.3 L Hct 32.5 L MCV 86.9 MCH 27.5 MCHC 31.7 L RDW Std Deviation 48.3 H RDW Coeff of Ronald 15.1 H Plt Count 254 MPV 9.7 Sodium Potassium Chloride Carbon Dioxide Anion Gap BUN Creatinine Est Cr Clr Drug Dosing Est GFR ( Amer) Est GFR (Non-Af Amer) BUN/Creatinine Ratio Glucose Uric Acid Calcium Total Bilirubin AST ALT Alkaline Phosphatase Total Protein Albumin Globulin Albumin/Globulin Ratio PG Care Time/CCT Total # of Minutes Spent Total Time Spent with Patient: Total time spent is greater than 50% in coordination of care (as documented) at patient's floor/unit and/or counseling patient: Coding Level of Care Code None Diagnoses Hypertension I10
[2020-05-21] MEDS ORDERED: LABETALOL HCL 200 MG TAB PO SCH (21:15)
[2020-05-21] MEDS ORDERED: MAG SULFATE 4GM BOLUS FROM BAG IV ONE (21:27)
--- NOTE | 2020-05-21 21:35 | Communication Note ---
Date of Service: May 21, 2020 Patient seen and examined in her room. RN notified me that she is now having severe-range BP, as high as 170s systolic. [facility] but written on her paper notes as they were just taken. Upon hearing that her pressure is still rising despite labetalol the patient states she is anxious, she becomes tearful, says she feels overwhelmed, notes she has not slept much at all since Tuesday night. She and FOB were counseled that given these pressures I do recommend she begin magnesium therapy for atypical severe preeclampsia. She agrees. Still is not having any symptoms other than those she attributes to anxiety and crying. Many questions asked and answered to their voiced satisfaction. They are aware that therapy typically is for 24 hours and this means she will likely be here in hospital through Tuesday AM. Encouraged to get some rest, emotional support provided, 15 min spent at bedside in reassurance and counseling.
[2020-05-21] MEDS: LACTATED RINGER'S 1,000 ML IV SCH (22:23)
[2020-05-21] MEDS: MAGNESIUM SULFATE / WTR 40 GM/1,000 ML BAG IV SCH (22:31)
[2020-05-21 23:00] LABS: Hematocrit (blood only) 31.4 % (37-47); Hemoglobin 10.4 g/dL (12.0-16.0); Mean Corpuscular Hemoglobin 28.9 pg (25-34); Mean Corpuscular Hgb Conc 33.1 g/dL (32-36); Mean Corpuscular Volume 87.2 fL (80-100); Mean Platelet Volume 9.7 fL (7.4-10.4); Platelet Count 245 K/uL (130-400); RDW Coefficient of Variation 14.9 % (11.5-14.5); RDW Standard Deviation 47.8 fL (36.4-46.3); White Blood Count 14.14 K/uL (4.8-10.8)
[2020-05-21 23:23] LABS: Albumin Level 2.2 gm/dl (3.4-5.0); BUN Creatinine Ratio 17.1 (10-20); Calcium 8.6 mg/dl (8.5-10.1); Creatinine Clr Calc Pharmacy 142.1 ml/min; Est GFR (African American) 133.5; Est GFR (Non-African American) 115.2; Potassium 3.4 mmol/L (3.5-5.1)
[2020-05-21 23:26] LABS: Albumin Globulin Ratio 0.6 (0.9-2); Bilirubin,Total 0.4 mg/dl (0.2-1); Globulin 3.4 gm/dl (2.5-4.0); Total Protein 5.6 gm/dl (6.4-8.2)
[2020-05-22] MEDS: IBUPROFEN 600 MG TAB PO PRN ×3 (06:07→17:15)
--- NOTE | 2020-05-22 06:30 | Obstetrical Progress Note ---
Date of Service May 22, 2020 Assessment & Plan (1) Hypertension: Ms. Hummel is doing well today with stable blood pressures less than 140/80 since starting on Mag gtt last night. Denies Pre-E symptoms of LOZANO, vision changes, SOB, RUQ pain, edema other than in feet. - Plts stable and WNL - LFTs downtrending but still elevated - Continue Mag gtt for total of 24 hours per protocol - Continue Labetalol 200 mg PO BID - Plan on discharge tomorrow assuming continued lack of Pre-E symptoms, n ormotensive BPs, and overall stability (2) Supervision of normal first : S/p Day 3 - Feels well today. Eating well, voiding well, ambulating well. - Pain well-controlled with ibuprofen 600mg Q4H PRN. - Vital signs reviewed and stable/WNL. - Hemoglobin reviewed. 12.0 --> 10.4 --> 10.1 (today) - Blood Type: A+, antibody negative, GBS negative, Rubella Immune, COVID-19 negative - Continue routine post- care: encourage ambulation, monitor and control pain with Motrin PRN, continue regular OB diet, monitor lochia - Pt has elected to continue bottle feeding with formula - Tentative discharge planned for tomorrow pending stability as stated above - After discharge, will have 6-wk follow-up with Dr. Whitman Admission and Anticipated Discharge Date Admission Date: May 18, 2020 Supervising Physician Co-Signing Physician Notes I have reviewed the resident's note and examined the patient myself, and agree with the note above. Subjective HPI Jo Hummel is a 30 y/o female who is PPD 3 spontaneous vaginal delivery at 38 3/7 weeks. Was hypertensive yesterday and found to have atypical Pre- Eclampsia with severe features - started on Labetalol BID and Mag yesterday. She reports feeling well overall this morning. Denies LOZANO, vision changes, SOB, RUQ abdominal pain, edema other than in the feet. Mild abdominal cramping and 0-2/10 pain well managed on analgesics. Voiding well. Tolerating meals overnight without difficulty. Patient has been able to ambulate some. passing gas and no bowel movement. Has persistent lochia with some improvement this morning. Currently bottle-feeding with formula. Review of Systems Review of Systems: ROS Denies fever or chills. Denies shortness of breath or cough. Denies chest pain. Denies breast pain. Denies dysuria. Denies leg pain or leg swelling. Physical Exam Physical Exam: PE General: Alert, oriented. No acute distress. Cardiac: Regular rate and rhythm. No murmurs. Respiratory: Clear to auscultation bilaterally a/p, no wheezes/rales/rhonchi. No increased work of breathing. Symmetrical chest rise. No respiratory distress. Abdomen: Soft, nontender, nondistended. Bowel sounds present. Uterus: Uterine fundus firm, palpable at umbilicus. Lower Extremities: No lower extremity edema or swelling. No deep calf pain. Nithya's negative bilaterally. Results & Data ([facility]) Vital Signs (Past 12 Hours) Vital Signs Temp Pulse Pulse Resp BP BP Pulse Ox 05/22/20 06:20 73 94 05/22/20 06:15 72 94 05/22/20 06:10 75 95 05/22/20 06:09 71 125/60 05/22/20 06:05 84 94 05/22/20 06:00 80 92 05/22/20 05:55 72 93 05/22/20 05:50 72 93 05/22/20 05:45 72 93 05/22/20 05:40 73 93 05/22/20 05:35 72 94 05/22/20 05:30 73 16 93 05/22/20 05:25 72 93 05/22/20 05:20 73 93 05/22/20 05:15 68 94 05/22/20 05:10 83 96 05/22/20 05:05 76 92 05/22/20 05:00 73 93 05/22/20 04:55 72 93 05/22/20 04:50 68 95 05/22/20 04:45 68 96 05/22/20 04:40 71 95 05/22/20 04:35 72 18 95 05/22/20 04:33 73 127/60 05/22/20 04:30 77 98 05/22/20 04:19 72 93 05/22/20 04:14 79 95 05/22/20 04:09 66 76 L 05/22/20 04:04 75 89 L 05/22/20 03:59 75 88 L 05/22/20 03:56 72 90 05/22/20 03:54 76 89 L 05/22/20 03:49 69 89 L 05/22/20 03:48 72 90 05/22/20 03:44 66 92 05/22/20 03:42 78 89 L 05/22/20 03:39 73 91 05/22/20 03:35 16 05/22/20 03:34 72 91 05/22/20 03:32 74 90 05/22/20 03:29 70 92 05/22/20 03:24 72 27 L 05/22/20 03:19 73 51 L 05/22/20 03:15 83 88 L 05/22/20 03:14 71 93 05/22/20 03:09 73 93 05/22/20 03:04 74 92 05/22/20 02:59 90 93 05/22/20 02:54 84 92 05/22/20 02:49 79 94 05/22/20 02:44 76 93 05/22/20 02:39 80 93 05/22/20 02:35 16 05/22/20 02:34 80 93 05/22/20 02:29 76 93 05/22/20 02:24 79 93 05/22/20 02:19 78 93 05/22/20 02:14 76 93 05/22/20 02:09 77 93 05/22/20 02:04 75 93 05/22/20 01:59 75 93 05/22/20 01:54 82 93 05/22/20 01:49 76 94 05/22/20 01:44 77 93 05/22/20 01:39 81 95 05/22/20 01:38 86 133/72 05/22/20 01:35 18 05/22/20 01:34 78 94 05/22/20 01:29 74 94 05/22/20 01:24 73 93 05/22/20 01:19 72 93 05/22/20 01:14 82 96 05/22/20 01:09 79 94 05/22/20 01:04 81 95 05/22/20 00:59 75 94 05/22/20 00:54 75 95 05/22/20 00:49 74 94 05/22/20 00:44 70 95 05/22/20 00:40 71 18 136/68 05/22/20 00:39 75 94 05/22/20 00:36 92 H 88 L 05/22/20 00:34 93 H 96 05/22/20 00:29 72 95 05/22/20 00:24 75 96 05/22/20 00:19 74 95 05/22/20 00:14 73 95 05/22/20 00:09 77 95 05/22/20 00:04 77 96 05/21/20 23:59 77 95 05/21/20 23:54 77 97 05/21/20 23:49 76 96 05/21/20 23:35 78 18 132/63 05/21/20 23:34 77 94 05/21/20 23:29 73 94 05/21/20 23:24 81 92 05/21/20 23:20 71 18 134/58 L 05/21/20 23:19 72 94 05/21/20 23:14 71 93 05/21/20 23:09 79 93 05/21/20 23:05 80 18 138/65 05/21/20 23:04 81 94 05/21/20 22:59 77 94 05/21/20 22:54 75 94 05/21/20 22:51 75 18 136/63 05/21/20 22:49 71 94 05/21/20 22:44 78 93 05/21/20 22:39 75 93 05/21/20 22:35 67 18 133/64 95 05/21/20 22:34 66 94 05/21/20 20:25 64 150/83 H 05/21/20 19:20 36.7 C 75 18 134/73 05/21/20 18:25 143/78 H Resident Activity Tracking Resident Involvement: Resident Care Provided Care Provided: OB Delivery
[2020-05-22 06:35] LABS: Hematocrit (blood only) 30.1 % (37-47); Hemoglobin 10.1 g/dL (12.0-16.0); Mean Corpuscular Hemoglobin 28.8 pg (25-34); Mean Corpuscular Hgb Conc 33.6 g/dL (32-36); Mean Corpuscular Volume 85.8 fL (80-100); Mean Platelet Volume 9.9 fL (7.4-10.4); Platelet Count 251 K/uL (130-400); RDW Standard Deviation 46.6 fL (36.4-46.3); Red Blood Count 3.51 M/uL (4.2-5.4); White Blood Count 12.08 K/uL (4.8-10.8)
[2020-05-22 07:06] LABS: BUN Creatinine Ratio 15.6 (10-20); Calcium 7.5 mg/dl (8.5-10.1); Creatinine Clr Calc Pharmacy 158.1 ml/min; Est GFR (African American) 138.3; Est GFR (Non-African American) 119.3; Potassium 3.3 mmol/L (3.5-5.1)
[2020-05-22 07:08] LABS: Albumin Globulin Ratio 0.6 (0.9-2); Bilirubin,Total 0.4 mg/dl (0.2-1); Globulin 3.3 gm/dl (2.5-4.0); Total Protein 5.3 gm/dl (6.4-8.2)
[2020-05-22] MEDS: DOCUSATE SODIUM 100 MG CAP PO SCH ×2 (08:18→21:19)
[2020-05-22] MEDS: PRENATAL VITAMIN 1 TAB PO SCH (08:18)
[2020-05-22] MEDS: LABETALOL HCL 200 MG TAB PO SCH ×2 (09:20→21:19)
[2020-05-22] MEDS: FLUOXETINE HCL 20 MG CAP PO SCH (09:20)
[2020-05-22] MEDS: LACTATED RINGER'S 1,000 ML IV SCH ×2 (13:07→19:02)
[2020-05-22] MEDS: MAGNESIUM SULFATE / WTR 40 GM/1,000 ML BAG IV SCH (17:08)
[2020-05-22 21:11] LABS: Albumin Level 2.2 gm/dl (3.4-5.0); Bilirubin Direct 0.1 mg/dl (0-0.2); Bilirubin,Total 0.4 mg/dl (0.2-1); Total Protein 5.6 gm/dl (6.4-8.2)
--- NOTE | 2020-05-22 21:23 | Obstetrical Progress Note ---
Date of Service May 22, 2020 Assessment & Plan (1) Preeclampsia in period: urine output excellent. denies sx. labs are stablilized or decreasing. bps noted on labetalol. will d/c mag at 24hr and move to pp. if stable overnight she wants to go home tomorrow. will need one wk followup as outpt and pt states delivering md wanted to see her next week. Plan to see Dr. Whitman next thurs. Subjective doing well, feels well. denies marie or visual change or ruq pain. eating, voiding. no complaints. baby does not have skull fracture so they are relieved. she had repeat labs just now and ast dec, alt stable. taking labetalol 200mg po bid Physical Exam Constitutional WD/WN, vitals as above Results & Data ([facility]) Vital Signs (Past 12 Hours) Vital Signs Temp Pulse Resp BP Pulse Ox 05/22/20 21:16 84 96 05/22/20 21:11 84 96 05/22/20 21:06 90 94 05/22/20 21:01 81 96 05/22/20 21:00 18 05/22/20 20:58 78 142/68 H 05/22/20 20:56 77 95 05/22/20 20:51 80 96 05/22/20 20:46 79 95 05/22/20 20:41 80 95 05/22/20 20:36 87 95 05/22/20 20:31 84 96 05/22/20 20:26 92 H 97 05/22/20 20:21 83 96 05/22/20 20:16 82 95 05/22/20 20:11 80 97 05/22/20 20:06 83 98 05/22/20 19:57 78 96 05/22/20 19:52 76 95 05/22/20 19:47 76 96 05/22/20 19:45 98.6 F 18 05/22/20 19:42 73 96 05/22/20 19:37 76 95 05/22/20 19:32 77 96 05/22/20 19:27 78 96 05/22/20 19:22 81 96 05/22/20 19:17 80 96 05/22/20 19:12 76 94 05/22/20 19:07 80 95 05/22/20 19:02 78 94 05/22/20 18:57 74 95 10/01/20 18:52 74 20 95 05/22/20 18:51 79 20 148/69 H 05/22/20 18:47 80 95 05/22/20 18:42 76 96 05/22/20 18:37 74 96 05/22/20 18:32 72 96 05/22/20 18:27 73 97 05/22/20 18:22 81 96 05/22/20 18:17 78 96 05/22/20 18:12 78 97 05/22/20 18:07 76 97 05/22/20 18:02 78 96 05/22/20 17:57 81 99 05/22/20 17:52 97 H 96 05/22/20 17:44 80 97 05/22/20 17:39 74 97 05/22/20 17:34 78 96 05/22/20 17:29 74 97 05/22/20 17:24 77 97 05/22/20 17:19 77 96 05/22/20 17:14 76 96 05/22/20 17:11 20 05/22/20 17:10 77 143/64 H 05/22/20 17:09 80 95 05/22/20 17:04 74 93 05/22/20 16:59 73 93 05/22/20 16:54 72 93 05/22/20 16:49 73 93 05/22/20 16:44 73 93 05/22/20 16:39 73 92 05/22/20 16:34 73 93 05/22/20 16:29 72 93 05/22/20 16:24 72 93 05/22/20 16:19 74 93 05/22/20 16:15 16 05/22/20 16:14 70 93 05/22/20 16:09 72 93 05/22/20 16:04 72 93 05/22/20 15:59 77 95 05/22/20 15:54 71 92 05/22/20 15:49 75 94 05/22/20 15:44 84 93 05/22/20 15:39 87 93 05/22/20 15:34 81 93 05/22/20 15:29 82 94 05/22/20 15:24 85 95 05/22/20 15:19 88 94 05/22/20 15:14 98.8 F 78 20 132/64 95 05/22/20 15:09 86 95 05/22/20 15:06 78 132/64 05/22/20 15:04 83 93 05/22/20 14:59 80 93 05/22/20 14:54 82 94 05/22/20 14:49 81 93 05/22/20 14:44 82 94 05/22/20 14:39 81 93 05/22/20 14:34 79 94 05/22/20 14:30 20 05/22/20 14:29 77 94 05/22/20 14:24 81 96 05/22/20 14:12 79 141/73 H 05/22/20 14:09 78 94 05/22/20 14:04 79 96 05/22/20 13:59 81 95 05/22/20 13:54 78 94 05/22/20 13:49 78 94 05/22/20 13:44 82 94 05/22/20 13:39 79 94 05/22/20 13:34 79 96 05/22/20 13:30 20 05/22/20 13:29 75 94 05/22/20 13:24 80 95 05/22/20 13:19 79 94 05/22/20 13:14 78 95 05/22/20 13:09 78 96 05/22/20 13:04 76 94 05/22/20 12:59 80 93 05/22/20 12:54 85 95 05/22/20 12:49 78 93 05/22/20 12:44 79 94 05/22/20 12:39 74 95 05/22/20 12:34 78 95 05/22/20 12:30 18 05/22/20 12:29 78 95 05/22/20 12:24 82 93 05/22/20 12:19 73 91 05/22/20 12:14 74 91 05/22/20 12:09 77 91 05/22/20 12:05 76 90 05/22/20 12:04 75 91 05/22/20 11:59 77 91 05/22/20 11:54 78 92 05/22/20 11:49 80 93 05/22/20 11:44 77 92 05/22/20 11:39 76 95 05/22/20 11:34 82 94 05/22/20 11:30 20 05/22/20 11:29 74 96 05/22/20 11:24 71 96 05/22/20 11:19 73 95 05/22/20 11:15 78 138/67 05/22/20 11:14 87 96 05/22/20 11:01 82 90 05/22/20 10:56 80 89 L 05/22/20 10:54 82 90 05/22/20 10:51 86 91 05/22/20 10:48 78 90 05/22/20 10:46 82 89 L 05/22/20 10:41 81 90 05/22/20 10:40 77 90 05/22/20 10:36 85 91 05/22/20 10:34 80 90 05/22/20 10:31 93 H 92 05/22/20 10:30 18 05/22/20 10:29 81 89 L 05/22/20 10:26 86 90 05/22/20 10:21 79 90 05/22/20 10:16 75 92 05/22/20 10:11 73 92 05/22/20 10:06 77 92 05/22/20 10:01 77 92 05/22/20 09:56 74 92 05/22/20 09:51 77 94 05/22/20 09:46 72 94 05/22/20 09:41 76 95 05/22/20 09:36 74 94 05/22/20 09:31 72 95 05/22/20 09:30 20 05/22/20 09:26 75 94 05/22/20 09:21 89 95
--- NOTE | 2020-05-23 06:37 | Obstetrical Progress Note ---
Date of Service May 23, 2020 Assessment & Plan (1) Preeclampsia in period: (2) Normal delivery at term: stable. bps good. ok for discharge later this am. labs were resolving, needs to cont labetalol and plan f/u next . pt aware to call to schedule. aware of s/sx of worsening preeclampsia. Day #:: 2 Subjective Ambulation: ambulating normally Voiding: no voiding problems Diet Tolerance:: regular diet Lochia:: Small Feeding Type:: bottle feeding feels some engorgement. no pain. no marie or visual change. no ruq pain. baby well. Physical Exam Constitutional WD/WN, vitals as above Respiratory normal respiratory effort, lungs clear to auscultation Cardiovascular Rate/Rhythm: regular rate and regular rhythm Gastrointestinal (Abdomen) Inspection/Auscultation: abdomen normal to inspection Percussion/Palpation: abdomen soft; abdomen nontender Fundus firm 2cm down Musculoskeletal nt calves +1 edema Neurologic grossly normal Psychiatric A+Ox3, euthymic affect Results & Data ([facility]) Vital Signs (Past 12 Hours) Vital Signs Temp Pulse Resp BP Pulse Ox 05/22/20 23:00 98.4 F 84 18 144/82 H 05/22/20 22:21 73 96 05/22/20 22:16 81 96 05/22/20 22:11 80 94 05/22/20 22:06 81 95 05/22/20 22:01 76 96 05/22/20 21:56 75 96 05/22/20 21:51 78 93 05/22/20 21:46 80 94 05/22/20 21:41 78 94 05/22/20 21:36 82 94 05/22/20 21:31 75 94 05/22/20 21:26 77 94 05/22/20 21:21 79 95 05/22/20 21:16 84 96 05/22/20 21:11 84 96 05/22/20 21:06 90 94 05/22/20 21:01 81 96 05/22/20 21:00 18 05/22/20 20:58 78 142/68 H 05/22/20 20:56 77 95 05/22/20 20:51 80 96 05/22/20 20:46 79 95 05/22/20 20:41 80 95 05/22/20 20:36 87 95 05/22/20 20:31 84 96 05/22/20 20:26 92 H 97 05/22/20 20:21 83 96 05/22/20 20:16 82 95 05/22/20 20:11 80 97 05/22/20 20:06 83 98 05/22/20 19:57 78 96 05/22/20 19:52 76 95 05/22/20 19:47 76 96 05/22/20 19:45 98.6 F 18 05/22/20 19:42 73 96 05/22/20 19:37 76 95 05/22/20 19:32 77 96 05/22/20 19:27 78 96 05/22/20 19:22 81 96 05/22/20 19:17 80 96 05/22/20 19:12 76 94 05/22/20 19:07 80 95 05/22/20 19:02 78 94 05/22/20 18:57 74 95 05/22/20 18:52 74 20 95 05/22/20 18:51 79 20 148/69 H 05/22/20 18:47 80 95 05/22/20 18:42 76 96 05/22/20 18:37 74 96
[2020-05-23] MEDS: DOCUSATE SODIUM 100 MG CAP PO SCH (08:08)
[2020-05-23] MEDS: FLUOXETINE HCL 20 MG CAP PO SCH (08:08)
[2020-05-23] MEDS: IBUPROFEN 600 MG TAB PO PRN (08:08)
[2020-05-23] MEDS: LABETALOL HCL 200 MG TAB PO SCH (08:08)
== END 2020-05-23 10:25 | disposition home or self-care (01) | DRG 807 ==
LOC: OPB 21:33 → 4S1 21:34 → 4S2 05-19 14:52 → 4S1 05-21 22:26 → 4S2 05-22 22:37